=== PATIENT | female | born 1970 | race American Indian/Alaskan Native ===

== ENCOUNTER 2017-01-12 08:34 | Emergency (ER) | payer BC ==
[2017-01-12 08:58] VITALS: BP 119/74
[2017-01-12] MEDS ORDERED: MOTRIN PO ONE (10:06)
== END 2017-01-12 10:25 | disposition home or self-care (01) ==
LOC: ED 08:34
DX: S13.4XXA Sprain of ligaments of cervical spine, initial encounter (principal); M54.12 Radiculopathy, cervical region; Z86.711 Personal history of pulmonary embolism; V49.49XA Driver injured in collision with other motor vehicles in traffic accident, initial encounter; Y93.9 Activity, unspecified; Y92.9 Unspecified place or not applicable; Y99.9 Unspecified external cause status
CPT/HCPCS: 99282

== ENCOUNTER 2018-05-18 04:37 | Emergency (ER) | payer BC ==
--- NOTE | 2018-05-18 08:33 | Emergency Department Report ---
ED Back Pain/Injury HPI - General Chief Complaint: Back Pain/Injury Stated Complaint: MID AND LOWER BACK AND LEFT HIP PAIN Time Seen by Provider: 05/18/18 08:33 Source: patient Mode of arrival: Ambulatory Limitations: No Limitations - History of Present Illness Initial Comments: Patient presented to the ED complaining of back pain. She denies any history of trauma, fall or recent injury. She has history of scoliosis and a robin put in her back to strengthen her back. MD Complaint: back pain -: Gradual Similar Symptoms Previously: Yes Place: home Radiation: other (right hip) Severity: moderate Severity scale (0 -10): 5 Quality: dull Consistency: constant Improves With: medication Worsens With: none Context: unknown Associated Symptoms: denies other symptoms Treatments Prior to Arrival: other medications (Flexeril) - Related Data Previous Rx's Medication Instructions Recorded Last Taken Type Cyclobenzaprine [Flexeril] 10 mg PO TID PRN 5 Days tablet 01/12/17 Unknown Rx Ibuprofen [Motrin 600 MG tab] 600 mg PO Q8H PRN 7 Days tablet 01/12/17 Unknown Rx Cyclobenzaprine [Flexeril] 10 mg PO TID PRN #20 tablet 05/18/18 Unknown Rx Ibuprofen [Motrin] 800 mg PO Q8HR PRN #25 tablet 05/18/18 Unknown Rx Allergies Allergy/AdvReac Type Severity Reaction Status Date / Time No Known Allergies Allergy Verified 01/12/17 08:58 ED Review of Systems ROS: Stated complaint: MID AND LOWER BACK AND LEFT HIP PAIN Other details as noted in HPI Comment: All other systems reviewed and negative Constitutional: denies: chills, fever Eyes: denies: eye pain ENT: denies: ear pain Respiratory: denies: cough, orthopnea, shortness of breath Cardiovascular: denies: chest pain, palpitations, dyspnea on exertion, orthopnea Endocrine: no symptoms reported Gastrointestinal: denies: abdominal pain, nausea, vomiting, diarrhea Genitourinary: denies: urgency, dysuria, frequency Musculoskeletal: back pain. denies: joint swelling Skin: denies: rash, lesions, change in color Neurological: denies: headache, weakness, numbness, paresthesias, confusion, abnormal gait Psychiatric: denies: anxiety, depression Hematological/Lymphatic: denies: easy bleeding, easy bruising ED Past Medical Hx - Past Medical History Previous Medical History?: Yes Hx Pulmonary Embolism: Yes Additional medical history: SCOLIOSIS. ANEMIA. ILEUS - Surgical History Past Surgical History?: Yes Additional Surgical History: CORRECTION OF SCOLEOSIS. KIDNEY SURGERY. IVC FILTER - Social History Smoking Status: Never Smoker Substance Use Type: None - Medications Home Medications: Home Medications Medication Instructions Recorded Confirmed Last Taken Type Cyclobenzaprine [Flexeril] 10 mg PO TID PRN 5 Days tablet 01/12/17 Unknown Rx Ibuprofen [Motrin 600 MG tab] 600 mg PO Q8H PRN 7 Days tablet 01/12/17 Unknown Rx Cyclobenzaprine [Flexeril] 10 mg PO TID PRN #20 tablet 05/18/18 Unknown Rx Ibuprofen [Motrin] 800 mg PO Q8HR PRN #25 tablet 05/18/18 Unknown Rx ED Physical Exam - General Limitations: No Limitations General appearance: alert, in no apparent distress - Head Head exam: Present: atraumatic, normocephalic, normal inspection - Eye Eye exam: Present: normal appearance, PERRL, EOMI Pupils: Present: normal accommodation - ENT ENT exam: Present: normal exam, normal orophraynx, mucous membranes moist - Neck Neck exam: Present: normal inspection, full ROM. Absent: tenderness - Respiratory Respiratory exam: Present: normal lung sounds bilaterally. Absent: respiratory distress, wheezes, rales, rhonchi, stridor - Cardiovascular Cardiovascular Exam: Present: regular rate, normal rhythm, normal heart sounds - GI/Abdominal GI/Abdominal exam: Present: soft, normal bowel sounds. Absent: distended, tenderness, guarding, rebound, rigid - Extremities Exam Extremities exam: Present: normal inspection, full ROM, normal capillary refill - Back Exam Back exam: Present: normal inspection, full ROM, muscle spasm. Absent: tenderness, CVA tenderness (R), CVA tenderness (L), paraspinal tenderness, vertebral tenderness - Neurological Exam Neurological exam: Present: alert, oriented X3, CN II-XII intact - Psychiatric Psychiatric exam: Present: normal affect, normal mood - Skin Skin exam: Present: warm, dry, intact, normal color. Absent: rash ED Course Vital Signs 05/18/18 05/18/18 04:57 13:48 Temperature 98.6 F 98.0 F Pulse Rate 74 63 Respiratory 16 16 Rate Blood Pressure 116/77 Blood Pressure 110/72 [Right] O2 Sat by Pulse 98 100 Oximetry ED Medical Decision Making - Lab Data Result diagrams: 05/18/18 08:58 05/18/18 08:58 - Radiology Data Radiology results: report reviewed, image reviewed - Medical Decision Making Chronic Back Pain. Critical care attestation.: If time is entered above; I have spent that time in minutes in the direct care of this critically ill patient, excluding procedure time. ED Disposition Clinical Impression: Back pain Qualifiers: Back pain location: low back pain Chronicity: chronic Back pain laterality: unspecified Sciatica presence: without sciatica Qualified Code(s): M54.5 - Low back pain Disposition: TO HOME OR SELFCARE Is pt being admited?: No Does the pt Need Aspirin: No Condition: Stable Instructions: Chronic Back Pain (ED) Additional Instructions: Please follow up with the Orthopedic Surgeon Dr Julio Hope on Monday. Return to the ED if your condition worsens. Prescriptions: Cyclobenzaprine [Flexeril] 10 mg PO TID PRN #20 tablet PRN Reason: Muscle Spasm Ibuprofen [Motrin] 800 mg PO Q8HR PRN #25 tablet PRN Reason: Pain , Severe (7-10) Referrals: PRIMARY CAREMD [Primary Care Provider] - 3-5 Days JULIO HOPE MD [Staff Physician] - 3-5 Days Forms: Work/School Release Form(ED) Time of Disposition: 15:31
[2018-05-18 09:14] LABS: Basophils # (Auto) 0.1 K/mm3 (0.0-0.1); Basophils % (Auto) 2.6 % (0.0-1.8); Eosinophils # (Auto) 0.2 K/mm3 (0.0-0.4); Eosinophils % (Auto) 3.1 % (0.0-4.3); Hematocrit 30.3 % (30.3-42.9); Hemoglobin 9.6 gm/dl (10.1-14.3); Lymphocytes # (Auto) 2.1 K/mm3 (1.2-5.4); Lymphocytes % (Auto) 38.7 % (13.4-35.0); Mean Corpuscular HGB Conc 32 % (30-34); Mean Corpuscular Hemoglobin 24 pg (28-32); Mean Corpuscular Volume 75 fl (79-97); Monocytes # (Auto) 0.4 K/mm3 (0.0-0.8); Monocytes % (Auto) 7.8 % (0.0-7.3); Platelet Count 386 K/mm3 (140-440); Red Blood Count 4.03 M/mm3 (3.65-5.03); Red Cell Distribution Width 17.2 % (13.2-15.2)
[2018-05-18 09:24] LABS: BUN/Creatinine Ratio 24; Blood Urea Nitrogen 12 mg/dL (7-17); Calcium 8.6 mg/dL (8.4-10.2); Hemolysis Index 3
--- NOTE | 2018-05-18 11:15 | XRay Report ---
RIGHT HIP, 2 views: History: Right hip pain The bony architecture is intact without evidence of fracture or dislocation. No significant soft tissue abnormality is seen. IMPRESSION: Normal right hip.
[2018-05-18 11:38] LABS: HCG Qualitative,Urine Negative (Negative)
[2018-05-18 11:48] LABS: Bacteria,Urine 1+ /HPF (Negative); Bilirubin,Urine NEG (Negative); Blood,Urine NEG (Negative); Color,Urine Straw (Yellow); Protein,Urine <15 mg/dL mg/dL (Negative); Urobilinogen,Urine < 2.0 mg/dL (<2.0)
--- NOTE | 2018-05-18 13:12 | XRay Report ---
THORACIC SPINE, 2 VIEWS: LUMBOSACRAL SPINE, 3 VIEWS: HISTORY: back pain. Bone mineralization is borderline. Posterior Navas rods are in place from the approximate level of T4-S1. The left Navas robin appears to be fractured at the level of L3-4. There is no evidence for compression deformity, subluxation or bone lesion. Mild degenerative disc disease and facet arthropathy are noted throughout the lumbar spine. A disc spacer is present in the anterior L4-5 disc space. IMPRESSION: Scoliosis as described. Mild lumbar spondylosis. No acute process is noted.
[2018-05-18 13:50] VITALS: BP 110/72
== END 2018-05-18 15:40 | disposition home or self-care (01) ==
LOC: ED 04:37
DX: M54.5 Low back pain (principal); D64.9 Anemia, unspecified; Z86.711 Personal history of pulmonary embolism
CPT/HCPCS: 36415; 72072; 72100; 80048; 81001; 81025; 85025; 99284

== ENCOUNTER 2019-02-21 06:24 | Outpatient (CLI) | payer BC ==
[2019-02-21 06:48] LABS: Hematocrit 28.8 % (30.3-42.9); Hemoglobin 8.7 gm/dl (10.1-14.3); Mean Corpuscular HGB Conc 30 % (30-34); Mean Corpuscular Volume 68 fl (79-97); Platelet Count 401 K/mm3 (140-440); Red Blood Count 4.22 M/mm3 (3.65-5.03); Red Cell Distribution Width 18.9 % (13.2-15.2)
[2019-02-21 07:15] LABS: Alanine Aminotransferase 8 units/L (7-56); Albumin 4.1 g/dL (3.9-5); BUN/Creatinine Ratio 15; Blood Urea Nitrogen 9 mg/dL (7-17); Calcium 8.7 mg/dL (8.4-10.2); Chol/HDL Ratio 2.76 %; HDL Cholesterol 42 mg/dL (40-59); Hemolysis Index 1; Iron 9 ug/dL (37-170); LDL Cholesterol,Direct 73 mg/dL (50-130); Total Iron Binding Capacity 366 mcg/dL (250-450)
[2019-02-21 07:31] LABS: Free T4 (Free Thyroxine) 1.01 ng/dL (0.76-1.46)
[2019-02-23 15:47] LABS: Vitamin D, 25-OH, D2 <4 ng/mL
== END 2019-02-21 06:25 | disposition home or self-care (01) ==
LOC: LAB 06:24
PROVIDERS: ATTEND Nurse Practitioner Adult Health
DX: D50.9 Iron deficiency anemia, unspecified (principal); K59.09 Other constipation
CPT/HCPCS: 36415; 80053; 80061; 82306; 82607; 82728; 83036; 83550; 84439; 84443; 84480; 85027

== ENCOUNTER 2019-05-10 08:53 | Outpatient (CLI) | payer BC ==
--- NOTE | 2019-05-10 12:28 | Ultrasound Report ---
TRANSABDOMINAL PELVIC AND TRANSVAGINAL ULTRASOUND HISTORY: N92.0: Excessive and frequent menstruation with regular cycle. COMPARISON: None. TECHNIQUE: Routine transabdominal and transvaginal pelvic ultrasound performed. FINDINGS: TRANSABDOMINAL PELVIC ULTRASOUND: Uterus: Normal size uterus with small fibroids. Uterus measures 9.2 x 4.5 x 6.4 cm. Endometrium: Not well demonstrated Right Ovary: Not seen. Left Ovary: Not seen. Additional findings: Transvaginal exam was performed for better delineation of the endometrium and ov ngoc. TRANSVAGINAL PELVIC ULTRASOUND: Uterus: Normal size with several small fibroids. Uterus measures 9.2 x 4.5 x 6.4 cm. An anterior int ramural fibroid measures 2.7 x 2.1 x 3.0 cm. Posterior intramural fibroids measure 2.0 x 1.5 x 1.6 cm and 1.5 x 1.4 x 1.5 cm. Endometrium: Normal thickness measuring 4 mm. A small amount of endometrial fluid. Right Ovary: Normal size, blood flow and appearance measuring 2.4 x 0.9 x 1.8 cm. Left Ovary: Normal size, blood flow and appearance measuring 2.6 x 1.5 x 2.1 cm. Additional findings: No adnexal mass or free fluid. IMPRESSION 1. Small uterine leiomyomata. 2. Normal endometrium. 3. Normal ovaries. Signer Name: Estuardo Pérez MD Signed: 05/10/2019 12:24 PM Workstation Name: [id number]
--- NOTE | 2019-05-10 13:11 | Mammography Report ---
DIGITAL SCREENING MAMMOGRAM WITH CAD, 05/10/2019 INDICATION: Routine screening mammography. TECHNIQUE: Digital bilateral 2D mammography was obtained in the craniocaudal and mediolateral obliq ue projections. This examination was interpreted with the benefit of Computer-Aided Detection analysi s. COMPARISON: 08/17/2016 FINDINGS: Breast Density: The breasts are heterogeneously dense, which may obscure small masses. There is no evidence of dominant mass, suspicious calcifications or architectural distortion in eithe r breast. A few scattered bilateral benign calcifications. IMPRESSION: No mammographic evidence of malignancy. Follow up recommendation: Routine yearly BI-RADS Category 2: Benign. A "normal" or negative report should not discourage follow up or biopsy of a clinically significant f inding. A written summary of these findings will be mailed to the patient. The patient will be entered into a mammography reporting system which will generate a reminder letter for the patient's next appointmen t at the appropriate interval. The [employer] recommends yearly mammograms starting at age 40 and continuing as l lisa as a woman is in good health. Breast MRI is recommended for women with an approximate 20-25% or greater lifetime risk of breast cancer, including women with a strong family history of breast or ova sweetie cancer or who have been treated for Hodgkin's disease. Signer Name: Estuardo Pérez MD Signed: 05/10/2019 1:06 PM Workstation Name: [id number]
== END 2019-05-10 08:54 | disposition home or self-care (01) ==
LOC: MAMMO 08:53
PROVIDERS: ATTEND Obstetrics & Gynecology
DX: Z12.31 Encounter for screening mammogram for malignant neoplasm of breast (principal); D25.1 Intramural leiomyoma of uterus
CPT/HCPCS: 76830; 76856; 77067

== ENCOUNTER 2019-05-11 15:16 | Emergency (ER) | payer BC ==
--- NOTE | 2019-05-11 15:45 | Event Note ---
ED Screening Note Date of service: 05/11/19 Time: 15:45 ED Screening Note: This is a 48 y.o. F. that presents to the ER with right lower quadrant pain. Patient states she had a transvaginal and pelvic ultrasound yesterday. LMP 05/05/2019 This initial assessment/diagnostic orders/clinical plan/treatment(s) is/are subject to change based on patients health status, clinical progression and re- assessment by fellow clinical providers in the ED. Further treatment and workup at subsequent clinical providers discretion. Patient/guardian urged not to elope from the ED as their condition may be serious if not clinically assessed and managed. Initial orders include: Labs
[2019-05-11 16:34] LABS: Basophils # (Auto) 0.2 K/mm3 (0.0-0.1); Eosinophils # (Auto) 0.1 K/mm3 (0.0-0.4); Eosinophils % (Auto) 2.2 % (0.0-4.3); Hematocrit 30.2 % (30.3-42.9); Hemoglobin 9.1 gm/dl (10.1-14.3); Lymphocytes # (Auto) 2.4 K/mm3 (1.2-5.4); Lymphocytes % (Auto) 36.6 % (13.4-35.0); Mean Corpuscular HGB Conc 30 % (30-34); Mean Corpuscular Volume 67 fl (79-97); Monocytes # (Auto) 0.4 K/mm3 (0.0-0.8); Monocytes % (Auto) 6.5 % (0.0-7.3); Platelet Count 532 K/mm3 (140-440); Red Blood Count 4.52 M/mm3 (3.65-5.03); Red Cell Distribution Width 18.4 % (13.2-15.2)
[2019-05-11] MEDS ORDERED: TORADOL IV ONE (16:39)
[2019-05-11 16:49] LABS: Alanine Aminotransferase 7 units/L (7-56); Albumin 4.1 g/dL (3.9-5); BUN/Creatinine Ratio 20; Blood Urea Nitrogen 10 mg/dL (7-17); Calcium 8.9 mg/dL (8.4-10.2); Hemolysis Index 17
[2019-05-11] MEDS ORDERED: TORADOL PO ONE ×2 (17:07→18:00)
[2019-05-11 18:15] LABS: Bilirubin,Urine NEG (Negative); Blood,Urine NEG (Negative); Color,Urine Yellow (Yellow); Mucus,Urine FEW /HPF; Protein,Urine <15 mg/dL mg/dL (Negative); Urobilinogen,Urine < 2.0 mg/dL (<2.0)
--- NOTE | 2019-05-11 18:23 | Emergency Department Report ---
ED General Adult HPI - General Chief complaint: Abdominal Pain Stated complaint: RT LEG/BACK PAIN Time Seen by Provider: 05/11/19 15:44 Source: patient Mode of arrival: Wheelchair Limitations: No Limitations - History of Present Illness Initial comments: Patient is a 48-year-old female who presents to emergency room with complaints of lower abdominal pain that radiates to her back and down her leg that began yesterday. She denies any nausea, vomiting, diarrhea, fever, urinary symptoms, fall, injury, numbness, weakness, bowel or bladder incontinence. she states that she had a transvaginal ultrasound performed yesterday by her [employer] due to her chronic anemia. Patient states her last mental cycle was May 03. Patient states she has a past medical history of scoliosis surgery where she had complications of ileus and PE and now has an IVC filter in place. she denies any allergies to medications. Severity scale (0 -10): 8 - Related Data Previous Rx's Medication Instructions Recorded Last Taken Type Cyclobenzaprine [Flexeril] 10 mg PO TID PRN 5 Days tablet 01/12/17 Unknown Rx Ibuprofen [Motrin 600 MG tab] 600 mg PO Q8H PRN 7 Days tablet 01/12/17 Unknown Rx Ibuprofen [Motrin] 800 mg PO Q8HR PRN #25 tablet 05/18/18 Unknown Rx Acetaminophen/Codeine [Tylenol 1 tab PO Q6H PRN #7 tab 05/11/19 Unknown Rx /Codeine # 3 tab] Cyclobenzaprine [Flexeril 10 MG 10 mg PO QHS PRN #10 tablet 05/11/19 Unknown Rx TAB] Ibuprofen [Motrin 800 MG tab] 800 mg PO Q8HR PRN #14 tablet 05/11/19 Unknown Rx Allergies Allergy/AdvReac Type Severity Reaction Status Date / Time No Known Allergies Allergy Verified 05/11/19 15:45 ED Review of Systems ROS: Stated complaint: RT LEG/BACK PAIN Other details as noted in HPI Comment: All other systems reviewed and negative ED Past Medical Hx - Past Medical History Previous Medical History?: Yes Hx Pulmonary Embolism: Yes Additional medical history: SCOLIOSIS. ANEMIA. ILEUS, Abnormal vaginal b leeding - Surgical History Past Surgical History?: Yes Additional Surgical History: CORRECTION OF SCOLEOSIS. KIDNEY SURGERY. IVC FILTER - Social History Smoking Status: Never Smoker Substance Use Type: Alcohol - Medications Home Medications: Home Medications Medication Instructions Recorded Confirmed Last Taken Type Cyclobenzaprine [Flexeril] 10 mg PO TID PRN 5 Days tablet 01/12/17 Unknown Rx Ibuprofen [Motrin 600 MG tab] 600 mg PO Q8H PRN 7 Days tablet 01/12/17 Unknown Rx Ibuprofen [Motrin] 800 mg PO Q8HR PRN #25 tablet 05/18/18 Unknown Rx Acetaminophen/Codeine [Tylenol 1 tab PO Q6H PRN #7 tab 05/11/19 Unknown Rx /Codeine # 3 tab] Cyclobenzaprine [Flexeril 10 MG 10 mg PO QHS PRN #10 tablet 05/11/19 Unknown Rx TAB] Ibuprofen [Motrin 800 MG tab] 800 mg PO Q8HR PRN #14 tablet 05/11/19 Unknown Rx ED Physical Exam - General Limitations: No Limitations General appearance: alert, in no apparent distress - Head Head exam: Present: atraumatic, normocephalic - Eye Eye exam: Present: normal appearance - ENT ENT exam: Present: mucous membranes moist - Respiratory Respiratory exam: Present: normal lung sounds bilaterally. Absent: respiratory distress, wheezes, rales, rhonchi, stridor, chest wall tenderness, accessory muscle use, decreased breath sounds, prolonged expiratory - Cardiovascular Cardiovascular Exam: Present: regular rate, normal rhythm, normal heart sounds. Absent: systolic murmur, diastolic murmur, rubs, gallop - GI/Abdominal GI/Abdominal exam: Present: soft, normal bowel sounds, other (negative murphys sign, negative mcburneys point tenderness, no peritoneal signs ). Absent: distended, tenderness, guarding, rebound, rigid - Back Exam Back exam: Present: normal inspection, full ROM. Absent: paraspinal tenderness, vertebral tenderness - Neurological Exam Neurological exam: Present: alert, oriented X3 - Psychiatric Psychiatric exam: Present: normal affect, normal mood - Skin Skin exam: Present: warm, dry, intact ED Course Vital Signs 05/11/19 05/11/19 05/11/19 15:26 17:35 19:01 Temperature 98.2 F 98.7 F Pulse Rate 88 76 Respiratory 18 16 18 Rate Blood Pressure 115/78 Blood Pressure 104/56 [Right] O2 Sat by Pulse 97 99 Oximetry ED Medical Decision Making - Lab Data Result diagrams: 05/11/19 15:58 05/11/19 15:58 Lab Results 05/11/19 05/11/19 05/11/19 Range/Units 15:58 15:58 15:58 WBC 6.6 (4.5-11.0) K/mm3 RBC 4.52 (3.65-5.03) M/mm3 Hgb 9.1 L (10.1-14.3) gm/dl Hct 30.2 L (30.3-42.9) % MCV 67 L (79-97) fl MCH 20 L (28-32) pg MCHC 30 (30-34) % RDW 18.4 H (13.2-15.2) % Plt Count 532 H (140-440) K/mm3 Lymph % (Auto) 36.6 H (13.4-35.0) % [place] % (Auto) 6.5 (0.0-7.3) % Eos % (Auto) 2.2 (0.0-4.3) % Baso % (Auto) 3.0 H (0.0-1.8) % Lymph # 2.4 (1.2-5.4) K/mm3 [place] # 0.4 (0.0-0.8) K/mm3 Eos # 0.1 (0.0-0.4) K/mm3 Baso # 0.2 H (0.0-0.1) K/mm3 Seg Neutrophils % 51.7 (40.0-70.0) % Seg Neutrophils # 3.4 (1.8-7.7) K/mm3 Sodium 134 L (137-145) mmol/L Potassium 4.2 (3.6-5.0) mmol/L Chloride 102.3 (98-107) mmol/L Carbon Dioxide 20 L (22-30) mmol/L Anion Gap 16 mmol/L BUN 10 (7-17) mg/dL Creatinine 0.5 L (0.7-1.2) mg/dL Estimated GFR > 60 ml/min BUN/Creatinine Ratio 20 % Glucose 83 (65-100) mg/dL Calcium 8.9 (8.4-10.2) mg/dL Total Bilirubin 0.20 (0.1-1.2) mg/dL AST 17 (5-40) units/L ALT 7 (7-56) units/L Alkaline Phosphatase 60 (35-129) units/L Total Protein 7.9 (6.3-8.2) g/dL Albumin 4.1 (3.9-5) g/dL Albumin/Globulin Ratio 1.1 % Lipase 41 (13-60) units/L HCG, Qual Negative (Negative) Urine Color (Yellow) Urine Turbidity (Clear) Urine pH (5.0-7.0) Ur Specific [place] (1.003-1.030) Urine Protein (Negative) mg/dL Urine Glucose (UA) (Negative) mg/dL Urine Ketones (Negative) mg/dL Urine Blood (Negative) Urine Nitrite (Negative) Urine Bilirubin (Negative) Urine Urobilinogen (<2.0) mg/dL Ur Leukocyte Esterase (Negative) Urine WBC (Auto) (0.0-6.0) /HPF Urine RBC (Auto) (0.0-6.0) /HPF U Epithel Cells (Auto) (0-13.0) /HPF Urine Mucus /HPF 05/11/19 Range/Units 17:06 WBC (4.5-11.0) K/mm3 RBC (3.65-5.03) M/mm3 Hgb (10.1-14.3) gm/dl Hct (30.3-42.9) % MCV (79-97) fl MCH (28-32) pg MCHC (30-34) % RDW (13.2-15.2) % Plt Count (140-440) K/mm3 Lymph % (Auto) (13.4-35.0) % [place] % (Auto) (0.0-7.3) % Eos % (Auto) (0.0-4.3) % Baso % (Auto) (0.0-1.8) % Lymph # (1.2-5.4) K/mm3 [place] # (0.0-0.8) K/mm3 Eos # (0.0-0.4) K/mm3 Baso # (0.0-0.1) K/mm3 Seg Neutrophils % (40.0-70.0) % Seg Neutrophils # (1.8-7.7) K/mm3 Sodium (137-145) mmol/L Potassium (3.6-5.0) mmol/L Chloride (98-107) mmol/L Carbon Dioxide (22-30) mmol/L Anion Gap mmol/L BUN (7-17) mg/dL Creatinine (0.7-1.2) mg/dL Estimated GFR ml/min BUN/Creatinine Ratio % Glucose (65-100) mg/dL Calcium (8.4-10.2) mg/dL Total Bilirubin (0.1-1.2) mg/dL AST (5-40) units/L ALT (7-56) units/L Alkaline Phosphatase (35-129) units/L Total Protein (6.3-8.2) g/dL Albumin (3.9-5) g/dL Albumin/Globulin Ratio % Lipase (13-60) units/L HCG, Qual (Negative) Urine Color Yellow (Yellow) Urine Turbidity Clear (Clear) Urine pH 7.0 (5.0-7.0) Ur Specific [place] 1.016 (1.003-1.030) Urine Protein <15 mg/dl (Negative) mg/dL Urine Glucose (UA) Neg (Negative) mg/dL Urine Ketones Neg (Negative) mg/dL Urine Blood Neg (Negative) Urine Nitrite Neg (Negative) Urine Bilirubin Neg (Negative) Urine Urobilinogen < 2.0 (<2.0) mg/dL Ur Leukocyte Esterase Neg (Negative) Urine WBC (Auto) 0.0 (0.0-6.0) /HPF Urine RBC (Auto) 3.0 (0.0-6.0) /HPF U Epithel Cells (Auto) < 1.0 (0-13.0) /HPF Urine Mucus Few /HPF - Medical Decision Making Patient is a 48-year-old female who presents to emergency room with complaints of lower abdominal pain that radiates to her back and down her leg that began yesterday. She denies any nausea, vomiting, diarrhea, fever, urinary symptoms, fall, injury, numbness, weakness, bowel or bladder incontinence. she states samson t she had a transvaginal ultrasound performed yesterday by her [employer] due to her chronic anemia. Patient states her last mental cycle was May 03. Patient states she has a past medical history of scoliosis surgery where she had complications of ileus and PE and now has an IVC filter in place. she denies any allergies to medications. vitals are normal. labs are stable. UA without evidence of UTI. no abd tenderness on exam, negative murphys sign, negative mcburneys point tenderness, no peritoneal signs. symptoms most likely related to pts chronic back pain and sciatica. pts discomfort treated while in the ED and improved. pt given prescriptions for flexeril, tylenol with codeine and ibu profen. advised pt to please take medication as prescribed. Do not drive or operate heavy machinery while taking pain medication or muscle relaxer. Please follow-up with an orthopedic doctor and your [employer] in the next 2-3 days. Return to the emergency room immediately for any new or worsening symptoms including but not limited to worsening abdominal pain, constant nausea vomiting, fever, chills, numbness, weakness, loss of bladder function or bowel function, etc. Critical care attestation.: If time is entered above; I have spent that time in minutes in the direct care of this critically ill patient, excluding procedure time. ED Disposition Clinical Impression: Lower abdominal pain Low back pain Qualifiers: Chronicity: acute Back pain laterality: right Sciatica presence: with sciatica Sciatica laterality: sciatica of right side Qualified Code(s): M54.41 - Lumbago with sciatica, right side Disposition: - TO HOME OR SELFCARE Is pt being admited?: No Does the pt Need Aspirin: No Condition: Stable Instructions: Sciatica (ED), Abdominal Pain (ED) Additional Instructions: Please take medication as prescribed. Do not drive or operate heavy machinery while taking pain medication or muscle relaxer. Please follow-up with an orthopedic doctor and your [employer] in the next 2-3 days. Return to the emergency room immediately for any new or worsening symptoms including but not limited to worsening abdominal pain, constant nausea vomiting, fever, chills, numbness, weakness, loss of bladder function or bowel function, etc. Prescriptions: Cyclobenzaprine [Flexeril 10 MG TAB] 10 mg PO QHS PRN #10 tablet PRN Reason: Muscle Spasm Ibuprofen [Motrin 800 MG tab] 800 mg PO Q8HR PRN #14 tablet PRN Reason: pain Acetaminophen/Codeine [Tylenol /Codeine # 3 tab] 1 tab PO Q6H PRN #7 tab PRN Reason: Pain , Severe (7-10) Referrals: BOGDAN FERREIRA MD [Staff Physician] - 2-3 Days your, frankfurter inspector [Other] - 2-3 Days Forms: Work/School Release Form(ED) Time of Disposition: 18:33 Print Language: [place]EN[place]
[2019-05-11 19:02] VITALS: BP 104/56
== END 2019-05-11 19:06 | disposition home or self-care (01) ==
LOC: ED 15:16
DX: R10.30 Lower abdominal pain, unspecified (principal); M54.5 Low back pain
CPT/HCPCS: 36415; 80053; 81001; 83690; 84703; 85025; J1885

== ENCOUNTER 2019-05-21 22:00 | Emergency (ER) | payer BC ==
[2019-05-21 23:37] LABS: Basophils # (Auto) 0.1 K/mm3 (0.0-0.1); Eosinophils # (Auto) 0.1 K/mm3 (0.0-0.4); Eosinophils % (Auto) 1.7 % (0.0-4.3); Monocytes # (Auto) 0.7 K/mm3 (0.0-0.8); Monocytes % (Auto) 7.7 % (0.0-7.3)
--- NOTE | 2019-05-21 23:50 | Emergency Department Report ---
ED Back Pain/Injury HPI - General Chief Complaint: Abdominal Pain Stated Complaint: ABD/BACK PAIN Time Seen by Provider: 05/21/19 22:14 Source: patient Limitations: No Limitations - History of Present Illness Initial Comments: 48-year-old female with history of scoliosis presents to ED with low back pain radiating into her right leg for approximately 2 weeks. Patient was seen in this ER 10 days ago, and diagnosed with sciatica. Patient then followed up with her orthopedic doctor as well. Had xrays done of lumbar spine that were normal. States she was given a prescription for steroid Dosepak, Flexeril, Tylenol 3. Patient states medications are not helping. Pain is worse when car from a sitting to standing. Reports burning sensation over the right thigh. Patient r eported that today she had one episode of urinary incontinence, but normal urination afterward. However patient denies bowel incontinence or retention, urinary retention, saddle anesthesia, or weakness in the legs. Patient states her orthopedist told her that the next step would be to obtain a CT myelogram, since patient is unable to undergo MRI due to the rise in her spine from scoliosis surgery in the past. MD Complaint: back pain -: week(s) (2) Similar Symptoms Previously: No Radiation: right leg Severity: severe Quality: burning, sharp Consistency: intermittent Improves With: immobilization Worsens With: movement Associated Symptoms: incontinence, headaches. denies: difficulty urinating, fever/chills, constipation, abdominal pain - Related Data Previous Rx's Medication Instructions Recorded Last Taken Type Cyclobenzaprine [Flexeril] 10 mg PO TID PRN 5 Days tablet 01/12/17 Unknown Rx Ibuprofen [Motrin 600 MG tab] 600 mg PO Q8H PRN 7 Days tablet 01/12/17 Unknown Rx Ibuprofen [Motrin] 800 mg PO Q8HR PRN #25 tablet 05/18/18 Unknown Rx Acetaminophen/Codeine [Tylenol 1 tab PO Q6H PRN #7 tab 05/11/19 Unknown Rx /Codeine # 3 tab] Cyclobenzaprine [Flexeril 10 MG 10 mg PO QHS PRN #10 tablet 05/11/19 Unknown Rx TAB] Ibuprofen [Motrin 800 MG tab] 800 mg PO Q8HR PRN #14 tablet 05/11/19 Unknown Rx Allergies Allergy/AdvReac Type Severity Reaction Status Date / Time No Known Allergies Allergy Verified 05/11/19 15:45 ED Review of Systems ROS: Stated complaint: ABD/BACK PAIN Other details as noted in HPI Comment: All other systems reviewed and negative Constitutional: denies: chills, fever Gastrointestinal: denies: abdominal pain Genitourinary: other (reports incontinence) Musculoskeletal: back pain Neurological: paresthesias. denies: weakness ED Past Medical Hx - Past Medical History Hx Pulmonary Embolism: Yes Additional medical history: SCOLIOSIS. ANEMIA. ILEUS, Abnormal vaginal bleeding - Surgical History Additional Surgical History: CORRECTION OF SCOLEOSIS. KIDNEY SURGERY. IVC FILTER - Social History Smoking Status: Never Smoker Substance Use Type: Alcohol - Medications Home Medications: Home Medications Medication Instructions Recorded Confirmed Last Taken Type Cyclobenzaprine [Flexeril] 10 mg PO TID PRN 5 Days tablet 01/12/17 Unknown Rx Ibuprofen [Motrin 600 MG tab] 600 mg PO Q8H PRN 7 Days tablet 01/12/17 Unknown Rx Ibuprofen [Motrin] 800 mg PO Q8HR PRN #25 tablet 05/18/18 Unknown Rx Acetaminophen/Codeine [Tylenol 1 tab PO Q6H PRN #7 tab 05/11/19 Unknown Rx /Codeine # 3 tab] Cyclobenzaprine [Flexeril 10 MG 10 mg PO QHS PRN #10 tablet 05/11/19 Unknown Rx TAB] Ibuprofen [Motrin 800 MG tab] 800 mg PO Q8HR PRN #14 tablet 05/11/19 Unknown Rx ED Physical Exam - General Limitations: No Limitations General appearance: alert, in no apparent distress - Head Head exam: Present: atraumatic, normocephalic - Eye Eye exam: Present: normal appearance, PERRL, EOMI - ENT ENT exam: Present: mucous membranes moist - Neck Neck exam: Present: normal inspection - Respiratory Respiratory exam: Present: normal lung sounds bilaterally. Absent: respiratory distress - Cardiovascular Cardiovascular Exam: Present: regular rate, normal rhythm - GI/Abdominal GI/Abdominal exam: Present: soft. Absent: distended, tenderness - Rectal Rectal exam: Present: normal rectal tone - Extremities Exam Extremities exam: Present: normal inspection - Back Exam Back exam: Present: paraspinal tenderness (right lower lumbar) - Neurological Exam Neurological exam: Present: alert, oriented X3. Absent: motor sensory deficit (sensation grossly intact, no saddle anesthesia present, strength 5/5 BLE, rectal tone normal) - Psychiatric Psychiatric exam: Present: normal affect, normal mood - Skin Skin exam: Present: warm, dry, intact, normal color ED Course Vital Signs 05/22/19 00:52 Pulse Rate 72 Respiratory 20 Rate Blood Pressure 124/74 O2 Sat by Pulse 100 Oximetry - Consultations Consultation #1: 05/21/19 23:[address] Eubanks, orthopedic surgeon. States findings do not sound likely typical cauda equina. Confirms pt will need CT Myelogram (which we are unable to perform). Wants pt to f/u in office tomorrow so that she may get outpt CT. ED Medical Decision Making - Lab Data Result diagrams: 05/21/19 23:09 05/21/19 23:09 - Medical Decision Making 48 yo F w/ sciatica. Reports episode of urinary incontinence earlier today, no episodes since. No other signs of cauda equina. Strength 5/5 in BLE, sensation normal, rectal tone is normal. Spoke w/ physician on-call for pt's orthopedist. State will have pt follow-up for CT Myelogram. - Differential Diagnosis cauda equina, sciatica Critical care attestation.: If time is entered above; I have spent that time in minutes in the direct care of this critically ill patient, excluding procedure time. ED Disposition Clinical Impression: Back pain with right-sided sciatica Disposition: - TO HOME OR SELFCARE Is pt being admited?: No Condition: Stable Instructions: Abdominal Pain (ED) Additional Instructions: Please follow up with your orthopedic physician tomorrow. Referrals: PRIMARY CARE, [Primary Care Provider] - 3-5 Days Forms: Work/School Release Form(ED)
[2019-05-21 23:52] LABS: Basophils % (Auto) 1.2 % (0.0-1.8); Lymphocytes % (Auto) 44.1 % (13.4-35.0); Mean Corpuscular HGB Conc 29 % (30-34); Platelet Count 388 K/mm3 (140-440); Red Blood Count 4.76 M/mm3 (3.65-5.03); Red Cell Distribution Width 18.4 % (13.2-15.2)
[2019-05-22 00:01] LABS: Hematocrit 31.6 % (30.3-42.9); Hemoglobin 9.2 gm/dl (10.1-14.3); Mean Corpuscular Volume 66 fl (79-97)
[2019-05-22 00:34] LABS: BUN/Creatinine Ratio 17; Blood Urea Nitrogen 10 mg/dL (7-17); Calcium 8.3 mg/dL (8.4-10.2); Hemolysis Index 4
[2019-05-22 00:58] VITALS: BP 124/74
[2019-05-22] MEDS ORDERED: KETOROLAC 30 MG/1 ML INJ ONE (01:07)
== END 2019-05-22 01:15 | disposition home or self-care (01) ==
LOC: ED 22:00
DX: M54.41 Lumbago with sciatica, right side (principal); R32 Unspecified urinary incontinence; Z86.711 Personal history of pulmonary embolism; Z79.01 Long term (current) use of anticoagulants; Z86.2 Personal history of diseases of the blood and blood-forming organs and certain disorders involving the immune mechanism; Z98.890 Other specified postprocedural states; Z79.899 Other long term (current) drug therapy
CPT/HCPCS: 36415; 80048; 85025; J1885

== ENCOUNTER 2020-07-06 09:16 | Outpatient (CLI) | payer BC ==
--- NOTE | 2020-07-06 10:16 | Mammography Report ---
DIGITAL SCREENING MAMMOGRAM WITH TOMOSYNTHESIS WITH CAD, 07/06/2020 CLINICAL INFORMATION / INDICATION: Routine Screening Mammography. TECHNIQUE: Digital bilateral 2D and 3D mammography with tomosynthesis was obtained in the craniocaud al and mediolateral oblique projections. Computer-Aided Detection (CAD) analysis was used for interp retation of this study. COMPARISON: 05/10/2019, 08/17/2016 FINDINGS: Breast Density: The breasts are heterogeneously dense, which may obscure small masses. No dominant mass, suspicious calcifications, or architectural distortion in either breast. IMPRESSION: No mammographic evidence of malignancy. Follow up recommendation: Routine yearly BI-RADS Category 1: Negative. A "normal" or negative report should not discourage follow up or biopsy of a clinically significant f inding. A written summary of these findings will be mailed to the patient. The patient will be entered into a mammography reporting system which will generate a reminder letter for the patient's next appointmen t at the appropriate interval. The [employer] recommends yearly mammograms starting at age 40 and continuing as l lisa as a woman is in good health. Breast MRI is recommended for women with an approximate 20-25% or greater lifetime risk of breast cancer, including women with a strong family history of breast or ova sweetie cancer or who have been treated for Hodgkin's disease. Signer Name: Angelito Pope MD Signed: 07/06/2020 10:11 AM Workstation Name: [id number]
== END 2020-07-06 09:17 | disposition home or self-care (01) ==
LOC: SPVWC 09:16
PROVIDERS: ATTEND Obstetrics & Gynecology
DX: Z12.31 Encounter for screening mammogram for malignant neoplasm of breast (principal); N64.89 Other specified disorders of breast
CPT/HCPCS: 77063; 77067